=== PATIENT | male | born 1995 | race Caucasian/White ===

== ENCOUNTER 2016-12-30 03:46 | Emergency (ER) | payer OTHER ==
[2016-12-30 04:26] LABS: % IMMATURE GRANULYOCYTES 0.2 % (0.0-1.1); ABSOLUTE IMMATURE GRANULOCYTES 0.01 10^3/uL (0.00-0.10); ADD DIFF? NO; ADD MORPH? NO; ADD SCAN? NO; ATYPICAL LYMPHOCYTE FLAG 0 (0-99); FRAGMENT RBC FLAG 0 (0-99); HEMATOCRIT 48.7 % (40.0-51.0); HEMOGLOBIN 16.7 g/dL (13.7-17.5); LEFT SHIFT FLG 0 (0-99); LIPEMIA HEMOLYSIS FLAG 90 (0-99); MEAN CELL HEMOGLOBIN 30.5 pg (27.9-34.1); MEAN CELL HEMOGLOBIN CONCENTR. 34.3 g/dL (32.4-36.7); MEAN PLATELET VOLUME 9.1 fL (8.7-11.7); PLATELET CLUMPS FLAG 0 (0-99); PLATELET COUNT 202 10^3/uL (150-400); RED BLOOD CELL COUNT 5.47 10^6/uL (4.40-6.38); RED CELL DISTRIBUTION WIDTH 12.3 % (11.5-15.2)
[2016-12-30 04:40] LABS: ALANINE AMINOTRANSFERASE 33 IU/L (21-72); ALBUMIN 4.6 g/dL (3.5-5.0); ALKALINE PHOSPHATASE 73 IU/L (38-126); ANION GAP 13 mEq/L (8-16); ASPARTATE AMINOTRANSFERASE 28 IU/L (17-59); BILIRUBIN,TOTAL 1.8 mg/dL (0.1-1.4); CALCIUM 9.8 mg/dL (8.5-10.4); CARBON DIOXIDE 23 mEq/l (22-31); CHLORIDE 106 mEq/L (97-110); CREATININE 0.8 mg/dL (0.7-1.3); GLOMERULAR FILTRATION RATE > 60; GLUCOSE 111 mg/dL (70-100); POTASSIUM 4.5 mEq/L (3.5-5.2); SODIUM 142 mEq/L (134-144); TOTAL PROTEIN 7.7 g/dL (6.3-8.2)
[2016-12-30 04:57] LABS: COLOR YELLOW; LEUKOCYTE ESTERASE,URINE NEGATIVE (NEGATIVE); NITRITE,URINE NEGATIVE (NEGATIVE)
--- NOTE | 2016-12-30 05:09 | EDPHY ---
H & P Stated Complaint: L groin/back pain since 22:30 8/ Time Seen by Provider: 12/30/16 03:54 HPI/ROS: HPI The patient presents with left-sided lower abdominal pain for the last 1 day that started slowly and has been constant. It feels like a pressure type pain and is somewhat crampy. He has had some small bowel movements today. He has mild dysuria as well. He has not had any fevers or chills, nausea or vomiting. REVIEW OF SYSTEMS Constitutional: No fever, no chills. Eyes: No discharge. ENT: No sore throat. Cardiovascular: No chest pain, no palpitations. Respiratory: No cough, no shortness of breath. Gastrointestinal: See HPI Genitourinary: No hematuria. Musculoskeletal: No back pain. Skin: No rashes. Neurological: No headache. PMHx: Healthy PHYSICAL General Appearance: Alert, no distress Eyes: Pupils equal and round no pallor or injection ENT, Mouth: Mucous membranes moist Respiratory: There are no retractions, lungs are clear to auscultation Cardiovascular: Regular rate and rhythm Gastrointestinal: Abdomen is soft with very mild tenderness in left lower quadrant, no masses, bowel sounds normal Neurological: A&O, moves all extremities Skin: Warm and dry, no rashes Musculoskeletal: Neck is supple non tender Extremities: symmetrical, full range of motion Psychiatric: Patient is oriented X 3, there is no agitation Source: Patient Exam Limitations: No limitations - Personal History Current Tetanus/Diphtheria Vaccine: Yes - Medical/Surgical History Hx Asthma: Yes Hx Chronic Respiratory Disease: No Hx Diabetes: No Hx Cardiac Disease: No Hx Renal Disease: No Hx Cirrhosis: No Hx Alcoholism: No Hx HIV/AIDS: No Hx Splenectomy or Spleen Trauma: No Other PMH: PMHx: denies. PSHx: denies - Social History Smoking Status: Never smoked Constitutional: Initial Vital Signs Temperature (C) 36.7 C 12/30/16 03:48 Heart Rate 75 12/30/16 03:48 Respiratory Rate 16 12/30/16 03:48 Blood Pressure 130/68 H 12/30/16 03:48 O2 Sat (%) 98 12/30/16 03:48 O2 Delivery Mode Room Air Allergies/Adverse Reactions: No Known Allergies Allergy (Unverified 12/30/16 03:48) Home Medications: Medication Instructions Recorded NK [No Known Home Meds] 12/30/16 Medical Decision Making Differential Diagnosis: This is a 21-year-old male who presents with left lower quadrant abdominal pain for 1 day. Differential diagnosis includes constipation, diverticulitis, urinary tract infection. In the emergency department, basic labs were checked and were all unremarkable. He actually improved here without any intervention spontaneously. He felt well enough to go home. Repeat abdominal exam was benign. I will discharge him with return precautions given. - Data Points Laboratory Results: Laboratory Results 12/30/16 04:15 12/30/16 04:15 Microbiology Results: MICROBIOLOGY 12/30/16 04:30 Urine,Clean Catch Urine Culture - Preliminary Departure - Departure Disposition: Home, Routine, Self-Care Clinical Impression: Abdominal pain in male Condition: Good Instructions: Constipation (ED), High Fiber Diet (ED) Additional Instructions: You may want to try using MiraLax for the next few days to see if this helps your symptoms. You should also make sure to drink plenty of water. Referrals: [facility],. [Clinic] - As per Instructions
[2016-12-30 05:37] VITALS: BP 110/95; PULSE 67; RESP 15; TEMP 98.8; O2SAT 99
== END 2016-12-30 05:37 | disposition home or self-care (01) ==
DX: R10.32 Left lower quadrant pain (principal); J45.909 Unspecified asthma, uncomplicated

== ENCOUNTER 2017-01-06 17:18 | Emergency (ER) | payer OTHER ==
[2017-01-06 17:33] VITALS: TEMP 98.2
--- NOTE | 2017-01-06 18:53 | EDPHY ---
H & P Time Seen by Provider: 01/06/17 18:42 HPI/ROS: CHIEF COMPLAINT: Headache, vision disturbance HISTORY OF PRESENT ILLNESS: This patient is a 22 year old male complaining of headache and right field vision disturbances onset yesterday afternoon. Yesterday was the patient's 22st birthday, and he had a heavy night drinking with friends the prior night. Yesterday, he woke up from a nap and noted a "blip" in his right field of vision , which progressed into a slight blurriness. He decided to go for a run, and had increased disturbance in his vision on the right, which he describes as "pixilated". He developed a throbbing headache at this time as well. These symptoms have waxed and waned. Moving makes his symptoms worse. He endorses nausea and slight photophobia. No sound sensitivity. He has taken Tylenol and Advil with no relief. He visited an shipping weigher who found no abnormalities with his eyes. He went to urgent care, and states they recommended he follow up in the Emergency Room for head imaging studies. He denies numbness or weakness. No prior history of headaches or migraines. REVIEW OF SYSTEMS: A 10 point review of systems was performed and is negative with the exception of the elements mentioned in the history of present illness. Past Medical/Surgical History: Denies Social History: [employer] student. Nonsmoker. No marijuana use. Occasional alcohol use. Smoking Status: Never smoked Physical Exam: General Appearance: Alert, no distress Eyes: Pupils equal and round, no conjunctival pallor or injection ENT, Mouth: Mucous membranes moist Neck: Normal inspection Respiratory: Lungs are clear to auscultation Cardiovascular: Regular rate and rhythm Gastrointestinal: Abdomen is soft and non- tender Neurological: Alert, oriented x3, cranial nerves II through XII intact, motor 5 /5, sensory intact to light touch, normal gait. No pronator drift. Skin: Warm and dry, no rash Extremities: Nontender, no pedal edema Psychiatric: Mood and affect normal Constitutional: Initial Vital Signs Temperature (C) 36.8 C 01/06/17 17:30 Heart Rate 70 01/06/17 17:30 Respiratory Rate 18 01/06/17 17:30 Blood Pressure 135/88 H 01/06/17 17:30 O2 Sat (%) 98 01/06/17 17:30 O2 Delivery Mode Room Air Allergies/Adverse Reactions: No Known Allergies Allergy (Verified 01/06/17 17:29) Home Medications: Medication Instructions Recorded Advil 01/06/17 Medical Decision Making - Diagnostics Imaging Results: Imaging Impressions Brain MRI 01/06/17 18:53 Impression: No acute abnormalities. Dr. Pinzon discussed these findings by telephone with ANGELITA WAHLEY at 2016 20:02. Imaging: Discussed imaging studies w/ call center analyst Radiologist ED Course/Re-evaluation: 22 year old male presents with headache and vision changes onset yesterday afternoon. Most likely secondary to atypical migraine. Plan for MRI to evaluate for acute intracranial processes. Plan to administer 10mg IV Reglan, 25mg IV Benadryl, 10mg IV Decadron for symptom relief. 20:[address] Pinzon, radiologist. Normal MRI. MRI results discussed the patient. He feels much better after the IV medications. Understands likely atypical migraine headache. Plan to discharge home in good condition. He will follow up with neurology for continued management of his migraines. Return precautions discussed. The patient is comfortable with this plan. Differential Diagnosis: Headache including but not limited to subarachnoid hemorrhage, migraine headache , tension headache and infectious causes such as meningitis, pharyngitis and sinusitis. - Data Points Laboratory Results: Laboratory Results 01/06/17 18:55 01/06/17 18:55 01/06/17 01/06/17 18:55 18:55 WBC 7.15 10^3/uL 10^3/uL (3.80-9.50) RBC 5.64 10^6/uL 10^6/uL (4.40-6.38) Hgb 17.3 g/dL g/dL (13.7-17.5) Hct 49.9 % % (40.0-51.0) MCV 88.5 fL fL (81.5-99.8) MCH 30.7 pg pg (27.9-34.1) MCHC 34.7 g/dL g/dL (32.4-36.7) RDW 12.4 % % (11.5-15.2) Plt Count 192 10^3/uL 10^3/uL (150-400) MPV 9.3 fL fL (8.7-11.7) Neut % (Auto) 56.0 % % (39.3-74.2) Lymph % (Auto) 31.9 % % (15.0-45.0) [place] % (Auto) 10.6 % % (4.5-13.0) Eos % (Auto) 0.6 % % (0.6-7.6) Baso % (Auto) 0.6 % % (0.3-1.7) Nucleat RBC Rel Count 0.0 % % (0.0-0.2) Absolute Neuts (auto) 4.01 10^3/uL 10^3/uL (1.70-6.50) Absolute Lymphs (auto) 2.28 10^3/uL 10^3/uL (1.00-3.00) Absolute Monos (auto) 0.76 10^3/uL 10^3/uL (0.30-0.80) Absolute Eos (auto) 0.04 10^3/uL 10^3/uL (0.03-0.40) Absolute Basos (auto) 0.04 10^3/uL 10^3/uL (0.02-0.10) Absolute Nucleated RBC 0.00 10^3/uL 10^3/uL (0-0.01) Immature Gran % 0.3 % % (0.0-1.1) Immature Gran # 0.02 10^3/uL 10^3/uL (0.00-0.10) Sodium 137 mEq/L mEq/L (134-144) Potassium 4.0 mEq/L mEq/L (3.5-5.2) Chloride 99 mEq/L mEq/L (97-110) Carbon Dioxide 26 mEq/l mEq/l (22-31) Anion Gap 12 mEq/L mEq/L (8-16) BUN 11 mg/dL mg/dL (7-23) Creatinine 0.8 mg/dL mg/dL (0.7-1.3) Estimated GFR > 60 Glucose 88 mg/dL mg/dL (70-100) Calcium 9.9 mg/dL mg/dL (8.5-10.4) Medications Given: Discontinued Medications Dexamethasone (Decadron Injection) 10 mg IVP EDNOW ONE Stop: 01/06/17 18:55 Last Admin: 01/06/17 19:33 Dose: 10 mg Diphenhydramine HCl (Benadryl Injection) 25 mg IVP EDNOW ONE Stop: 01/06/17 18:55 Last Admin: 01/06/17 19:32 Dose: 25 mg Metoclopramide HCl (Reglan Injection) 10 mg IVP EDNOW ONE Stop: 01/06/17 18:55 Last Admin: 01/06/17 19:33 Dose: 10 mg Departure - Departure Disposition: Home, Routine, Self-Care Clinical Impression: Atypical migraine Condition: Good Instructions: Migraine Headache (ED) Additional Instructions: 1. Follow up with neurology for continued evaluation of your headaches and vision disturbances. 2. Return to the emergency department for worsening headache, nausea, vomiting, numbness, weakness, neck pain, fever or other concerns. Referrals: Gurwinder Mae MD [Medical Doctor] - As per Instructions Report Scribed for: Angelita Whaley Report Scribed by: Yesenia Mar Date of Report: 01/06/17 Time of Report: 18:53 Physician Review and Approval Statement: 01/06/17 18:53 Portions of this note were transcribed by a medical stenographer. I personally performed a history, physical exam, medical decision making, and confirmed accuracy of information the transcribed note.
[2017-01-06] MEDS ORDERED: METOCLOPRAMIDE 10 MG/2 ML VIAL IVP ONE (18:54)
[2017-01-06] MEDS ORDERED: DEXAMETHASONE 10 MG/ML VIAL IVP ONE (18:54)
[2017-01-06 19:04] LABS: % IMMATURE GRANULYOCYTES 0.3 % (0.0-1.1); ABSOLUTE IMMATURE GRANULOCYTES 0.02 10^3/uL (0.00-0.10); ADD DIFF? NO; ADD MORPH? NO; ADD SCAN? NO; ATYPICAL LYMPHOCYTE FLAG 0 (0-99); FRAGMENT RBC FLAG 0 (0-99); HEMATOCRIT 49.9 % (40.0-51.0); HEMOGLOBIN 17.3 g/dL (13.7-17.5); LEFT SHIFT FLG 0 (0-99); LIPEMIA HEMOLYSIS FLAG 90 (0-99); MEAN CELL HEMOGLOBIN 30.7 pg (27.9-34.1); MEAN CELL HEMOGLOBIN CONCENTR. 34.7 g/dL (32.4-36.7); MEAN CELL VOLUME 88.5 fL (81.5-99.8); MEAN PLATELET VOLUME 9.3 fL (8.7-11.7); PLATELET CLUMPS FLAG 10 (0-99); PLATELET COUNT 192 10^3/uL (150-400); RED BLOOD CELL COUNT 5.64 10^6/uL (4.40-6.38); RED CELL DISTRIBUTION WIDTH 12.4 % (11.5-15.2)
[2017-01-06 19:23] LABS: ANION GAP 12 mEq/L (8-16); CALCIUM 9.9 mg/dL (8.5-10.4); CARBON DIOXIDE 26 mEq/l (22-31); CHLORIDE 99 mEq/L (97-110); CREATININE 0.8 mg/dL (0.7-1.3); GLOMERULAR FILTRATION RATE > 60; GLUCOSE 88 mg/dL (70-100); SODIUM 137 mEq/L (134-144)
[2017-01-06 20:04] VITALS: BP 128/79; PULSE 73; RESP 16; O2SAT 99
== END 2017-01-06 20:17 | disposition home or self-care (01) ==
DX: G43.909 Migraine, unspecified, not intractable, without status migrainosus (principal)
CPT/HCPCS: 96374; J1100; J1200; J2765

== ENCOUNTER 2017-01-07 22:15 | Emergency (ER) | payer OTHER ==
[2017-01-07 22:20] VITALS: RESP 16; TEMP 97.9
--- NOTE | 2017-01-07 22:42 | EDPHY ---
H & P Stated Complaint: migraines Time Seen by Provider: 01/07/17 22:22 HPI/ROS: Chief Complaint: Headache, vision changes HPI: 22-year-old male presenting with changes to his right vision in both of his eyes. Patient states symptoms started about 2 weeks ago when he had an episode away notice some dots which then progressed to ways in the right side of his vision in both his eyes. These lasted for a couple of hours went away after rest. Symptoms return began about a week later. These again resolved. Patient woke up Tuesday morning with a headache in the left side which was a dull ache. Again had some dots in his right sided vision which progressed to a wave. This persisted intermittently for the next day. He was seen in the emergency department yesterday and had an MRI scan of his brain which was initially read as negative but was over-read by Neuro Radiology today with findings of questionable possible AVM. Patient is coming back today with worsening symptoms. Does again have a left-sided headache which is described as dull he has a little bit of nausea as well. He patient also states that today he has a sensation of a bloody nose but there has not been any bleeding. Is continuing to have some intermittent vision changes. Denies any fevers or chills. Denies any head trauma in the past. No vomiting. No other new numbness or weakness. ROS: 10 point Review of Systems is negative except as noted in the HPI. PMH: None Social History: No smoking, occasional alcohol, no recreational drug use Family History: non-contributory Physical Exam: Gen: Awake, Alert, No Distress HEENT: Nose: no rhinorrhea Eyes: PERRLA, EOMI Mouth: Moist mucosa Neck: Supple, no JVD Chest: nontender, lungs clear to auscultation Heart: S1, S2 normal, no murmur Abd: Soft, non-tender, no guarding Back: no CVA tenderness, no midline tenderness Ext: no edema, non-tender Skin: no rash Neuro: CN II-XII intact, Sensation grossly intact, Strength 5/5 in bilateral upper and lower extremities - Personal History Current Tetanus/Diphtheria Vaccine: Yes Current Tetanus Diphtheria and Acellular Pertussis (TDAP): Yes - Medical/Surgical History Hx Asthma: Yes Hx Chronic Respiratory Disease: No Hx Diabetes: No Hx Cardiac Disease: No Hx Renal Disease: No Hx Cirrhosis: No Hx Alcoholism: No Hx HIV/AIDS: No Hx Splenectomy or Spleen Trauma: No Other PMH: PMHx: denies. PSHx: denies - Social History Smoking Status: Never smoked Constitutional: Initial Vital Signs Temperature (C) 36.6 C 01/07/17 22:18 Heart Rate 87 01/07/17 22:18 Respiratory Rate 16 01/07/17 22:18 Blood Pressure 142/85 H 01/07/17 22:18 O2 Sat (%) 98 01/07/17 22:18 O2 Delivery Mode Room Air Allergies/Adverse Reactions: No Known Allergies Allergy (Verified 01/06/17 17:29) Home Medications: Medication Instructions Recorded Advil 01/06/17 Medical Decision Making - Diagnostics Imaging Results: Imaging Impressions Brain MRI 01/07/17 22:39 Impression: 1. 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 2. No acute infarct, hydrocephalus or mass effect. Findings and recommendations discussed with Emergency Department physician, Jameel Bran MD at 2340 hour, 01/08/2017. Findings also discussed with the patient and parents. Final report concurs with initial preliminary interpretation. 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 Findings and recommendations discussed with Emergency Department physician, Jameel Bran MD at 2330 hour, 01/08/2017. Final report concurs with initial preliminary interpretation. ED Course/Re-evaluation: I have reviewed the MRI from yesterday. Radiology is recommended an MRI with contrast and an MRA. He has been ordered. MRI results discussed with Dr. Sharpe, Neuro Radiology. Findings are consistent with a small AVM in the mesial left occipital lobe. Have discussed with family. They are requesting that they need transfer that they go to the [facility]. I have paged the [facility] transfer Center to discuss with Neurosurgery. Case discussed with Dr. Kim, neurosurgery [facility]. He is accepting the patient transfer. Patient's be directly admitted to the neurosurgery floor. Patient is able to go by private vehicle. His parents will take him. The EMTALA form has been completed. Departure - Departure Disposition: Acute Care Hospital Not [facility] Clinical Impression: Cerebral AVM Condition: Fair Additional Instructions: Go to the [facility] Emergency Department entrance. They will direct you to the floor and room were you will be admitted. Referrals: NONE *PRIMARY CARE P,. [Primary Care Provider] - As per Instructions
[2017-01-07] MEDS ORDERED: GADOBUTROL 10 ML VIAL IVP ONE (22:55)
[2017-01-08 00:53] VITALS: BP 129/65; PULSE 76; O2SAT 96
== END 2017-01-08 00:55 | disposition short-term general hospital (02) ==
DX: Q28.2 Arteriovenous malformation of cerebral vessels (principal); J45.909 Unspecified asthma, uncomplicated
CPT/HCPCS: A9585